=== PATIENT | male | born 1990 | race Two or more races ===

== ENCOUNTER 2018-12-11 20:53 | Emergency (ER) | payer BC, OTHER ==
[~2018-12-11] VITALS: Ht 175.3 cm; Wt 107.0 kg
[2018-12-11] MEDS ORDERED: KETOROLAC TROMETHAMINE INJ 60 MG/2 ML VIAL IM ONE (21:30)
[2018-12-11] MEDS ORDERED: KETOROLAC TROMETHAMINE INJ 30 MG/ML VIAL ONE (21:32)
--- NOTE | 2018-12-11 22:27 | NUR ---
PT APPEARS TO BE RESTING COMFORTABLY IN BED. PT IS SMILING AND LYING IN BED. PT WAS NOT ABLE TO LIE DOWN UPON ARRIVAL.
[2018-12-11 22:44] VITALS: BP 137/85
== END 2018-12-11 22:45 | disposition home or self-care (01) ==
LOC: ER 20:56
DX: S29.012A Strain of muscle and tendon of back wall of thorax, initial encounter (principal); F12.90 Cannabis use, unspecified, uncomplicated; V49.49XA Driver injured in collision with other motor vehicles in traffic accident, initial encounter; Y93.89 Activity, other specified; Y92.413 State road as the place of occurrence of the external cause; Y99.8 Other external cause status
CPT/HCPCS: 96372; 99283; J1885